=== PATIENT | male | born 1955 | race African-American/Black ===

== ENCOUNTER 2018-03-31 18:15 | Emergency (ER) | payer SELFPAY ==
[~2018-03-31] VITALS: Ht 188 cm; Wt 110.0 kg
[~2018-03-31 18:15] MED LIST: CHLO50 PO; Z.0.NO CURRENT MEDS
[2018-03-31 18:24] VITALS: BP 156/99; PULSE 69; RESP 16; TEMP 98.5; O2SAT 100
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
[2018-03-31] MEDS ORDERED: SODIUM CHLORIDE 0.9% FLUSH 10 ML FLUSH IV FLUSH PRN (19:45)
--- NOTE | 2018-03-31 20:39 | RADRPT ---
EXAM DATE: 03/31/2018 8:21 PM EDT AGE/SEX: 62 years / Male INDICATIONS: Chest pain. Smoker. CLINICAL DATA: This is the patient's initial encounter. Patient reports that signs and symptoms have been present for 1 week and indicates a pain score of 1/10. MEDICAL/SURGICAL HISTORY: None. None. COMPARISON: [facility] – [place], CHEST SINGLE AP, 05/03/2011. . FINDINGS: A single AP view of the chest demonstrates the lungs to be symmetrically aerated without evidence of mass, infiltrate or effusion. The cardiomediastinal contours are unremarkable. Osseous structures a re intact. CONCLUSION: No acute findings. Tortuous aorta. Electronically signed by: Constantine Malave MD 03/31/2018 8:38 PM EDT
[2018-03-31 20:55] LABS: AUTOMATED NEUTROPHIL # 5.4 TH/MM3 (1.8-7.7); BASOPHIL # 0.1 TH/MM3 (0-0.2); BASOPHIL % 0.6 % (0.0-2.0); EOSINOPHIL # 0.3 TH/MM3 (0-0.4); EOSINOPHIL % 3.7 % (0.0-4.0); HEMATOCRIT 40.4 % (39.0-51.0); HEMOGLOBIN 13.5 GM/DL (13.0-17.0); LYMPH % 29.2 % (9.0-44.0); LYMPHOCYTE # 2.7 TH/MM3 (1.0-4.8); MEAN CELL VOLUME 87.2 FL (80.0-100.0); MEAN CORPUSCULAR HEMOGLOBIN 29.1 PG (27.0-34.0); MEAN CORPUSCULAR HGB CONC 33.4 % (32.0-36.0); MEAN PLATELET VOLUME 8.8 FL (7.0-11.0); MONO % 8.1 % (0.0-8.0); MONOCYTE # 0.7 TH/MM3 (0-0.9); NEUT % 58.4 % (16.0-70.0); PLATELET COUNT 192 TH/MM3 (150-450); RED BLOOD COUNT 4.63 MIL/MM3 (4.50-5.90); RED CELL DISTRIBUTION WIDTH 14.2 % (11.6-17.2); WHITE BLOOD COUNT 9.2 TH/MM3 (4.0-11.0)
[2018-03-31 21:07] LABS: BACTERIA, URINE OCC /hpf; BILIRUBIN, URINE NEG (NEG); BLOOD, URINE MOD (NEG); GLUCOSE,URINE NEG (NEG); KETONE, URINE NEG (NEG); MUCUS URINE FEW /lpf (OCC); NITRITE,URINE NEG (NEG); SQUAMOUS EPITHELIAL CELL URINE 1 /hpf (0-5); URINE COLOR YELLOW (YELLW/STRAW); URINE LEUKOCYTE ESTERASE LARGE (NEG); WHITE BLOOD CELL CLUMPS RARE
[2018-03-31 21:08] LABS: PROTHROMBIN TIME - PATIENT 10.6 SEC (9.8-11.6)
[2018-03-31 21:15] LABS: ALBUMIN 3.5 GM/DL (3.4-5.0); AST (GOT) 17 U/L (15-37); BICARBONATE 24.1 MEQ/L (21.0-32.0); BLOOD UREA NITROGEN 20 MG/DL (7-18); CHLORIDE 102 MEQ/L (98-107); CREATININE 2.16 MG/DL (0.60-1.30); GLOMERULAR FILTRATION RATE 37 ML/MIN (>89); GLUCOSE,RANDOM 71 MG/DL (74-106); SODIUM (NA) 136 MEQ/L (136-145)
[2018-03-31 21:16] LABS: ALT (GPT) 17 U/L (12-78)
[2018-03-31 21:25] LABS: ALKALINE PHOSPHATASE 100 U/L (45-117); TOTAL BILIRUBIN ADULT 0.3 MG/DL (0.2-1.0); TOTAL PROTEIN 8.4 GM/DL (6.4-8.2); TROPONIN I LESS THAN 0.02 NG/ML (0.02-0.05)
[2018-03-31] MEDS ORDERED: ONDANSETRON ODT 4 MG TAB PO ONE (22:00)
--- NOTE | 2018-04-01 01:02 | RADRPT ---
EXAM DATE: 04/01/2018 12:29 AM EDT AGE/SEX: 62 years / Male INDICATIONS: Abdominal pain X 2 months. CLINICAL DATA: This is the patient's initial encounter. Patient reports that signs and symptoms have been present for 2 months and indicates a pain score of 8/10. MEDICAL/SURGICAL HISTORY: None. None. RADIATION DOSE: 8.53 CTDI (mGy) COMPARISON: No prior exams available for comparison. TECHNIQUE: Multiple contiguous axial images were obtained through the abdomen. Images were obtained using multiple row detector helical technique. Using dose reduction techniques, radiation dose was ke pt as low as reasonably achievable to obtain optimal diagnostic quality images. FINDINGS: Lower Lungs: The visualized lower lungs are clear. Liver: The liver has a homogeneous density without space-occupying lesion. There is no dilation of th e biliary tree. Spleen: Homogeneous density without enlargement. Pancreas: Unremarkable without mass or calcification. Kidneys: Normal in size and shape. No evidence of mass or hydronephrosis. Adrenal Glands: Unremarkable. Aorta: There is aneurysmal dilatation of the distal aorta measuring 3.4 x 3.1 cm. Bowel/Mesentery: The bowel loops are grossly unremarkable. The cecum and sigmoid colon have a normal configuration. Abdominal Wall: Intact. Retroperitoneum: No evidence of adenopathy in the retrocrural, para-aortic, or deep pelvic regions. Bladder: Contours are smooth. Reproductive Organs: No abnormal masses or calcifications seen. Inguinal: Small fat-containing inguinal hernias. Bony Structures: Degenerative changes greatest at L4. CONCLUSION: 1. Infrarenal abdominal aortic aneurysm measuring 3.4 cm. 2. No acute inflammatory process Electronically signed by: Tiburcio Holcomb MD 04/01/2018 1:01 AM EDT
--- NOTE | 2018-04-01 13:35 | EKG ---
Date Performed: 03/31/2018 Time Performed: 20:22:57 PTAGE: 62 years EKG: SINUS BRADYCARDIA WITH FIRST DEGREE AV BLOCK POSSIBLE LEFT ATRIAL ENLARGEMENT RIGHT BUNDLE BRANCH BLOCK INFERIOR MYOCARDIAL INFARCTION MODERATE T-WAVE ABNORMALITY, CONSIDER LATERAL ISCHEMIA AB NORMAL ECG PREVIOUS TRACING : 05/03/2011 17.57 Right bundle branch block is new since the prior tracing. C linical correlation recommended. DOCTOR: Matthew Nair Interpretating Date/Time 04/01/2018 13:34:18
== END 2018-04-01 02:22 | disposition home or self-care (01) ==
LOC: NEPE 18:15
DX: I71.4 Abdominal aortic aneurysm, without rupture (principal); R00.1 Bradycardia, unspecified; I44.0 Atrioventricular block, first degree; I45.10 Unspecified right bundle-branch block; I25.2 Old myocardial infarction; R94.31 Abnormal electrocardiogram [ECG] [EKG]; F17.200 Nicotine dependence, unspecified, uncomplicated
CPT/HCPCS: 71045; 74176; 80053; 81001; 83690; 84484; 85025; 85610; 85730; 87086; 93005; 99285